=== PATIENT | female | born 2000 | race Caucasian/White ===

== ENCOUNTER 2020-02-11 11:05 | Emergency (ER) | payer OTHER, SELFPAY ==
--- NOTE | ~2020-02-11 | CT_ITS ---
EXAMINATION: CT abdomen pelvis w con DATE: 02/11/2020 13:21 INDICATION: Nausea and vomiting. Diarrhea. TECHNIQUE: Computed tomography (CT) of the abdomen and pelvis was performed with 100 mL Omnipaque 350 intravenous contrast. Automated exposure control and iterative reconstruction technique were employe d. The dose-length product was 604.36 mGy-cm. COMPARISON: CT abdomen and pelvis 07/08/2019 FINDINGS: The visualized portions of the lung bases are clear without pneumonia or pleural effusion. The heart size is normal. No pericardial effusion. The liver, gallbladder, spleen, pancreas, adrenal glands, kidneys, and ureters are normal. There are no dilated loops of bowel. The appendix is normal. There are no pathologically enlarged lymph nodes. There is no free intraperitoneal fluid. There is a benign bone island in right pelvis. IMPRESSION: 1. No etiology for the patient's symptoms. Reviewed, dictated and finalized at location A.
[2020-02-11 11:10] VITALS: BP 120/70; PULSE 72; RESP 28; TEMP 36.4; O2SAT 100
--- NOTE | 2020-02-11 11:18 | ECG_ITS ---
Measurements Intervals [place] Rate: 71 P: 54 MT: 134 QRS: 101 QRSD: 98 T: 60 QT: 383 QTc: 418 Interpretive Statements SINUS RHYTHM NORMAL ECG Electronically Signed On 02-11-2020 11:46:03 CDT by Abdullahi Willoughby D.O.
[2020-02-11] MEDS: ONDANSETRON INJ 4 MG/2 ML VIAL IV PUSH (11:27)
[2020-02-11] MEDS: SODIUM CHLORIDE 0.9% IV 1,000 ML 999 ML IV CONT (11:27)
[2020-02-11] MEDS: FAMOTIDINE 20 MG/2 ML VIAL IV PUSH (11:28)
[2020-02-11 11:35] LABS: Basophils Absolute Auto 0.1 K/mm3 (0.0-0.1); Basophils Percent Auto 0.4 % (0.2-1.2); Eosinophils Absolute Auto 0.3 K/mm3 (0-0.3); Eosinophils Percent Auto 1.9 % (0-4.4); Hemoglobin 14.8 g/dL (12.0-15.0); Immature Granulocyte Absolute 0.06 K/mm3 (0.00-0.031); Immature Granulocyte Percent A 0.4 % (0-0.5); Lymphocytes Absolute Auto 3.25 K/mm3 (0.9-3.2); Lymphocytes Percent Auto 22.5 % (18.3-44.2); Mean Corpuscular HGB Conc 35.2 g/dl (32-36); Mean Corpuscular Hemoglobin 31.4 pg (26-34); Mean Corpuscular Volume 89.2 fl (80-100); Mean Platelet Volume 9.5 fl (7.4-10.4); Monocytes Absolute Auto 1.1 K/mm3 (0.1-0.6); Monocytes Percent Auto 7.4 % (2.6-8.5); Neutrophils Absolute Auto 9.7 K/mm3 (1.3-6.7); Neutrophils Percent Auto 67.4 % (45.5-73.1); Platelet Count Result 458 k/mm3 (150-375); Red Blood Count 4.71 M/mm3 (4.2-5.4); Red Cell Distribution Width 12.3 % (11.5-14.5); White Blood Count 14.4 K/mm3 (4.5-10.0)
[2020-02-11 11:46] LABS: Alanine Aminotransferase 19 U/L (4-35); Albumin Level 4.8 g/dL (3.5-5.1); Alkaline Phosphatase 94 U/L (38-126); Aspartate Amino Transferase 17 U/L (14-36); Bilirubin,Total 0.7 mg/dL (0.2-1.3); Blood Urea Nitrogen 12 mg/dL (7-17); Calcium 9.8 mg/dL (8.4-10.2); Carbon Dioxide 20 mmol/L (22-30); Chloride 107 mmol/L (98-107); Estimated CRCL calculation 119 ml/min; Estimated Glomerular Filt Rate > 60; Glucose 91 mg/dL (65-105); Lipase 211 U/L (23-300); Sodium 137 mmol/L (137-145)
--- NOTE | 2020-02-11 12:14 | ED.NAVMDI ---
HPI - Nausea/Vomiting/Diarrhea General Chief complaint: Nausea/Vomiting/Diarrhea <Italo Bridges PA-C - Last Filed: 02/11/20 13:56> Stated complaint: n/v, SOB <Italo Bridges PA-C - Last Filed: 02/11/20 13:56> Time Seen by Provider: 02/11/20 11:09 <Italo Bridges PA-C - Last Filed: 02/11/20 13:56> Source: patient <Italo Bridges PA-C - Last Filed: 02/11/20 13:56> Mode of arrival: ambulatory <WENDIE Montana Last Filed: 02/11/20 13:56> Limitations: no limitations <WENDIE Montana Last Filed: 02/11/20 13:56> History of Present Illness HPI Narrative: Patient is a 19-year-old female who presents to emergency department for evaluation of abdominal pain and suprapubic region coupled with nausea and vomiting this morning that started with multiple episodes of emesis unable to keep liquids down also notes over the last week she has had some loose stools patient recently diagnosed polycystic ovarian disease and 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 Patient denies rectal bleeding notes that she has had some chills with her vomiting. Patient denies similar occurrence in regards to her vomiting <Italo Bridges PA-C - Last Filed: 02/11/20 13:56> Related Data Allergies/Adverse reactions: Allergies Allergy/AdvReac Type Severity Reaction Status Date / Time No Known Allergies Allergy Verified 02/11/20 11:16 <Italo Bridges PA-C - Last Filed: 02/11/20 13:56> Review of Systems Review of Systems: All systems reviewed & are unremarkable except as noted in HPI and below <Italo Bridges PA-C - Last Filed: 02/11/20 13:56> [facility] Past Medical History Medical History: Medical History (Updated 02/11/20 @ 13:54 by Italo Bridges PA-C) Anxiety Obesity Polycystic ovary disease <WENDIE [place] Last Filed: 02/11/20 13:56> Social History Social History: Social History Gender identity (if verbalized by the patient): Female <Italo Bridges PA-C - Last Filed: 02/11/20 13:56> Exam Narrative: Exam Narrative: GENERAL: Well-appearing, obese, and in no acute distress. HEAD: Normocephalic, atraumatic. EYES: PERRLA and EOMI. ENT: Nares clear, no rhinorrhea or epistaxis. Mucous membranes moist. Oropharynx without tonsillar hypertrophy exudate or other lesions. NECK: Supple. No adenopathy or masses. No carotid bruits or JVD CHEST: Clear to auscultation. No respiratory distress. No wheezes rales or rhonchi HEART: Regular rate and rhythm. No murmur heard. Normal peripheral pulses. ABDOMEN: Soft, suprapubic tenderness to palpation, nondistended EXTREMITIES: Normal range of motion. No edema. SKIN: Warm, dry, no rash. NEURO: No focal deficits. Alert and oriented x3. Cranial nerves II through XII grossly intact PSYCH: Normal mood and affect. <Italo Bridges PA-C - Last Filed: 02/11/20 13:56> Course Course Emergency Course: Patient in the room aware of case findings treatment plan and diagnosis feeling better at this time <Italo Bridges PA-C - Last Filed: 02/11/20 13:56> Vital Signs Vital signs: Vital Signs Temperature 36.4 C 02/11/20 11:10 Pulse Rate 72 02/11/20 11:10 Respiratory Rate 28 H 02/11/20 11:10 Blood Pressure 120/70 02/11/20 11:10 Pulse Oximetry 100 02/11/20 11:10 Temperature 36.3 C L 02/11/20 12:20 Pulse Rate 75 02/11/20 14:06 Respiratory Rate 14 02/11/20 14:06 Blood Pressure 130/50 L 02/11/20 14:06 Pulse Oximetry 98 02/11/20 14:06 <Italo Bridges PA-C - Last Filed: 02/11/20 13:56> Vital Signs Temperature 36.4 C 02/11/20 11:10 Pulse Rate 72 02/11/20 11:10 Respiratory Rate 28 H 02/11/20 11:10 Blood Pressure 120/70 05/28/20 11:10 Pulse Oximetry 100 02/11/20 11:10 T
[2020-02-11] MEDS: IBUPROFEN IV 800 MG/200 ML 800 MG/200 ML BAG 400 MG IVPB (12:18)
[2020-02-11] MEDS: LACTATED RINGERS 1,000 ML 999 ML IV CONT (12:18)
[2020-02-11] MEDS: LORAZEPAM INJ 2 MG/ML VIAL 1 MG IV PUSH (12:19)
[2020-02-11 12:20] VITALS: BP 111/67; PULSE 64; RESP 14; TEMP 36.3; O2SAT 96
[2020-02-11 12:27] LABS: Add Urine Microscopic? YES; Amorphous Sediment Urine Few; Appearance Urine Cloudy (Clear); Bacteria Urine Trace /hpf; Bilirubin Urine Negative (Negative); Blood Urine Negative (Negative); Color Urine Yellow (Yellow); Glucose Urine UA Negative (Negative); Ketones Urine Negative (Negative); Leukocyte Esterase Ur Negative LEU/UL (Negative); Mucus Urine Rare /lpf; Nitrate Urine Negative (Negative); Protein Urine Negative (Negative); Specific Grav Ur 1.017 (1.001-1.035); Squamous Epithelial Cell Urine Many /hpf (Few); Urobilinogen Urine Negative mg/dL (<2.0)
[2020-02-11 14:06] VITALS: BP 130/50; PULSE 75; RESP 14; O2SAT 98
== END 2020-02-11 14:14 | disposition home or self-care (01) ==
PROVIDERS: Emergency Medicine Emergency Medical Services; Emergency Provider Emergency Medicine
DX: R10.30 Lower abdominal pain, unspecified (principal); E28.2 Polycystic ovarian syndrome; E66.9 Obesity, unspecified; Z68.34 Body mass index [BMI] 34.0-34.9, adult
CPT/HCPCS: 36415; 74177; 80053; 81001; 81025; 83690; 85025; 93005; 96365; 96367; 96375; 99284; J0131; J1741; J2060; J2405; J7030; J7120; Q9967

== ENCOUNTER 2020-03-08 19:06 | Emergency (ER) | payer OTHER, SELFPAY ==
[2020-03-08 19:19] VITALS: BP 105/56; PULSE 71; RESP 16; TEMP 36.8; O2SAT 99
--- NOTE | 2020-03-08 19:36 | ED.GENADULT ---
HPI - General Adult General Chief complaint: Urogenital-Female Stated complaint: swollen,redness vagina Time Seen by Provider: 03/08/20 19:37 Source: patient Mode of arrival: ambulatory Limitations: no limitations History of Present Illness HPI narrative: 19-year-old female patient presents to the [facility] with complaints of vaginal irritation that started yesterday morning. Patient states she has had a thick white discharge, itching, irritation and swelling. Patient states that she did try and had to have sex last night and states that she was not able to due to pain. Patient states that her last period was in December but recently had an Implanon placed. Patient states that she typically does get STD testing done every 3 months and that the last time she was seen which is about 2-1/2 months ago she was diagnosed with herpes. Patient states she only has 1 partner but she knows that her partner has other possible multiple partners. Patient states that she typically does not use protection because her partner does not want to. Patient denies any homosexual relations. Denies any anal sex. Related Data Home Medications Medication Instructions Recorded Confirmed acyclovir 03/08/20 buspirone mg 03/08/20 calcium carbonate-vitamin D3 tablet PO 03/08/20 doxycycline hyclate 03/08/20 metformin mg 03/08/20 multivitamin [Daily-Maryann] tablet 03/08/20 sertraline mg 03/08/20 spironolactone 03/08/20 Allergies Allergy/AdvReac Type Severity Reaction Status Date / Time No Known Allergies Allergy Verified 02/11/20 11:16 Review of Systems Review of Systems: Narrative: CONSTITUTIONAL: Denies fever, chills, or sweats. EYES: Denies visual changes, redness, or discharge. ENT: Denies rhinorrhea, congestion, sore throat, or otalgia. CARDIOVASCULAR: Denies chest pain, palpitations, or edema. RESPIRATORY: Denies cough or dyspnea. GASTROINTESTINAL: Denies abdominal pain, nausea, vomiting, or diarrhea. GENITOURINARY: Denies dysuria or hematuria. Positive vaginal itch, irritation and discharge since yesterday SKIN: Denies rash or itching. MUSCULOSKELETAL: Denies back pain, joint pain, or myalgia. NEUROLOGIC: Denies headache, numbness, or weakness. PSYCHIATRIC: Denies anxiety or depression. [facility] Past Medical History Medical History Anxiety Obesity Polycystic ovary disease Social History Social History Gender identity (if verbalized by the patient): Female Comments At the time of my signature I agree with nursing past medical history, surgical, social, and family history. There is no relevant family history pertinent to the presenting complaint. Exam Narrative: Exam Narrative: GENERAL: Well-appearing, well-nourished, and in no acute distress. HEAD: Normocephalic, atraumatic. EYES: PERRLA and EOMI. ENT: Nares clear, no rhinorrhea or epistaxis. Mucous membranes moist. NECK: Supple. No lymphadenopathy CHEST: Clear to auscultation. No respiratory distress. HEART: Regular rate and rhythm. No murmur heard. Normal peripheral pulses. ABDOMEN: Soft, nontender, nondistended, normal active bowel sounds. No CVA tenderness on percussion : Normal external female genitalia. There is some redness and excoriation noted to the bilateral labia. OS is closed. Positive adnexal fullness and TTP. Patient has some white discharge noted on exam. No CVA tenderness to percussion. EXTREMITIES: Normal range of motion. No edema. SKIN: Warm, dry, no rash. NEURO: No focal deficits. Alert and oriented x3. Course Vital Signs Vital signs: Vital Signs Temperature 36.8 C 03/08/20 19:19 Pulse Rate 71 03/08/20 19:19 Respiratory Rate 16 03/08/20 19:19 Blood Pressure 105/56 L 03/08/20 19:19 Pulse Oximetry 99 03/08/20 19:19 Temperature 36.8 C 03/08/20 19:19 Pulse Rate 71 03/08/20 19:19 Respiratory Rate 16 03/08/20 1
--- NOTE | 2020-03-08 19:56 | PC.NURSE ---
vaginal exam set up at bedside.
[2020-03-08] MEDS: LIDOCAINE HCL 1% LOCAL INJ 20 ML VIAL IM (20:05)
[2020-03-08] MEDS: cefTRIAXone 250 MG VIAL IM (20:05)
[2020-03-08] MEDS: AZITHROMYCIN 250 MG TABLET 1000 MG PO (20:05)
== END 2020-03-08 20:28 | disposition home or self-care (01) ==
PROVIDERS: Emergency Provider Nurse Practitioner Family
DX: N89.8 Other specified noninflammatory disorders of vagina (principal); F41.9 Anxiety disorder, unspecified; E66.9 Obesity, unspecified; Z68.34 Body mass index [BMI] 34.0-34.9, adult; E28.2 Polycystic ovarian syndrome
CPT/HCPCS: 81003; 81025; 87086; 87491; 87591; 87661; 96372; 99214; A9270; G0463; J0696

== ENCOUNTER 2020-10-11 11:54 | Emergency (ER) | payer OTHER, SELFPAY ==
[2020-10-11 12:13] VITALS: BP 112/68; PULSE 90; RESP 16; TEMP 36.4; O2SAT 99
--- NOTE | 2020-10-11 12:31 | ED.URI ---
HPI - URI/Sore Throat General Chief Complaint: Upper Respiratory Infection Stated Complaint: Sore throat/Headache Source: patient Mode of arrival: ambulatory Limitations: no limitations History of Present Illness HPI Narrative: Patient is a 20-year-old female who presents complaining of sore throat and headache since this a.m. Patient reports having a history of strep throat multiple times a year. She denies cough, congestion, body aches or fever. She denies taking [id number] medications for pain. Related Data Home Medications Medication Instructions Recorded Confirmed acyclovir 03/08/20 buspirone mg 03/08/20 calcium carbonate-vitamin D3 tablet PO 03/08/20 doxycycline hyclate 03/08/20 metformin mg 03/08/20 multivitamin [Daily-Maryann] tablet 03/08/20 sertraline mg 03/08/20 spironolactone 03/08/20 Allergies Allergy/AdvReac Type Severity Reaction Status Date / Time No Known Allergies Allergy Verified 10/11/20 12:05 Review of Systems Review of Systems: Narrative: CONSTITUTIONAL: Denies fever, chills, or sweats. EYES: Denies visual changes, redness, or discharge. ENT: Reports sore throat CARDIOVASCULAR: Denies chest pain, palpitations, or edema. RESPIRATORY: Denies cough or dyspnea. GASTROINTESTINAL: Denies abdominal pain, nausea, vomiting, or diarrhea. GENITOURINARY: Denies dysuria or hematuria. SKIN: Denies rash or itching. MUSCULOSKELETAL: Denies back pain, joint pain, or myalgia. NEUROLOGIC: Reports headache PSYCHIATRIC: Denies anxiety or depression. [facility] Past Medical History Medical History (Updated 10/11/20 @ 12:35 by IMANI Yi) Anxiety Obesity Polycystic ovary disease Social History Social History Gender identity (if verbalized by the patient): Female Comments At the time of signature, I have reviewed and agree with nursing past medical, surgical, social, and family history unless otherwise noted. Please see nursing chart for further information. There is no relevant family history pertinent to the presenting complaint. Exam Narrative: Exam Narrative: GENERAL: Well-appearing, well-nourished, and in no acute distress. HEAD: Normocephalic, atraumatic. EYES: EOMI. No redness or drainage. Conjunctiva are normal. ENT: Mucous membranes pink and moist. Nares clear. No rhinorrhea. Throat positive for erythema, edema and exudate. Uvula midline. NECK: AROM. Supple. Mild cervical lymphadenopathy. CHEST: No respiratory distress. HEART: Regular rate and rhythm. EXTREMITIES: Normal range of motion. No edema. SKIN: Warm, dry, no rash. NEURO: No focal deficits. Alert and oriented x3. Gait steady. PSYCH: Normal affect. No signs of depression or anxiety. Course Vital Signs Vital signs: Vital Signs Temperature 36.4 C L 10/11/20 12:13 Pulse Rate 90 10/11/20 12:13 Respiratory Rate 16 10/11/20 12:13 Blood Pressure 112/68 10/11/20 12:13 Pulse Oximetry 99 10/11/20 12:13 Temperature 36.4 C L 10/11/20 12:13 Pulse Rate 90 10/11/20 12:13 Respiratory Rate 16 10/11/20 12:13 Blood Pressure 112/68 10/11/20 12:13 Pulse Oximetry 99 10/11/20 12:13 Reviewed MDM - URI/Sore Throat MDM Narrative Medical decision making narrative: Patient's rapid strep is positive. Patient to be treated with antibiotics at this time. Patient instructed on increasing fluid intake as well as [id number] medications for pain or fever. Patient is stable for discharge home with outpatient follow-up as needed. Differential Diagnosis Differential diagnosis: Likely upper respiratory infection, otitis media, influenza, pharyngitis and other (Strep throat) Medical Records Attestation: I reviewed the patient's medical records. Lab Data Attestation: I reviewed the patient's lab results. Labs: Strep Screen Positive Group A Strep *(Reference Range: Negative)*
[2020-10-11] MEDS: ACETAMINOPHEN 500 MG TABLET 1000 MG PO (12:45)
== END 2020-10-11 13:01 | disposition home or self-care (01) ==
PROVIDERS: Emergency Provider Nurse Practitioner
DX: J02.0 Streptococcal pharyngitis (principal); E66.9 Obesity, unspecified; Z68.36 Body mass index [BMI] 36.0-36.9, adult; E28.2 Polycystic ovarian syndrome; F41.9 Anxiety disorder, unspecified
CPT/HCPCS: 87880; 99213; A9270; G0463

== ENCOUNTER 2021-09-28 12:02 | Outpatient (CLI) | payer OTHER, SELFPAY ==
[2021-09-28 12:27] LABS: Hemoglobin A1C 5.1 % (<5.7)
[2021-09-28 12:33] LABS: Alanine Aminotransferase 50 U/L (4-35); Albumin Level 4.4 g/dL (3.5-5.1); Alkaline Phosphatase 81 U/L (38-126); Anion Gap 9 mmol/L (8-16); Aspartate Amino Transferase 21 U/L (14-36); Bilirubin,Total 0.5 mg/dL (0.2-1.3); Blood Urea Nitrogen 8 mg/dL (7-17); Calcium 9.2 mg/dL (8.4-10.2); Carbon Dioxide 26 mmol/L (22-30); Chloride 105 mmol/L (98-107); Estimated Glomerular Filt Rate > 60; Glucose 96 mg/dL (65-110); Potassium 4.1 mmol/L (3.4-5.0); Sodium 140 mmol/L (137-145)
[2021-10-02 11:11] LABS: DHEA-Sulfate 441 mcg/dL (18-391)
[2021-10-02 12:39] LABS: Testosterone Total 48 ng/dL (2-45)
[2021-10-03 14:34] LABS: FSH 2.4 mIU/mL (***); Progesterone 0.8 ng/mL (***)
== END 2021-09-28 12:03 | disposition home or self-care (01) ==
LOC: ANHLAB 12:03
PROVIDERS: PCP Emergency Medicine; Visit Provider Obstetrics & Gynecology
DX: R10.2 Pelvic and perineal pain (principal); N94.6 Dysmenorrhea, unspecified
CPT/HCPCS: 36415; 80053; 82627; 83001; 83002; 83036; 83498; 84144; 84403; 84436; 84443

== ENCOUNTER 2022-01-05 15:06 | Outpatient (CLI) | payer OTHER, SELFPAY ==
--- NOTE | ~2022-01-05 | US_ITS ---
EXAMINATION: US pelvic complete w TV DATE: 01/05/2022 16:42 INDICATION: Pelvic and perineal pain TECHNIQUE: Multiple transabdominal and endovaginal sonographic images of the pelvis were obtained. COMPARISON: 10/27/2018 FINDINGS: The uterus measures 7.3 x 5.2 x 3.7 cm. The endometrial complex measures 2 mm. The right ov lolis measures 3.5 x 2.3 x 2.1 cm. There is a 4.8 x 2.9 cm anechoic area in the right adnexa with a gabriela ear internal septation. The left ovary measures 3.1 x 2.4 x 1.6 cm. There is normal vascular flow in the ovaries. There is no free fluid in the pelvis. IMPRESSION: 1. Cystic right adnexal area which could reflect a complex cyst or possible hydrosalpinx. Correlate f or right adnexal tenderness. Follow-up ultrasound in 8-12 weeks is recommended. Reviewed, dictated and finalized at location F. IMPRESSION: 1. Cystic right adnexal area which could reflect a complex cyst or possible hyd rosalpinx. Correlate for right adnexal tenderness. Follow-up ultrasound in 8-12 weeks is recommended.
== END 2022-01-05 15:07 | disposition home or self-care (01) ==
PROVIDERS: PCP Emergency Medicine; Visit Provider Obstetrics & Gynecology
DX: R10.2 Pelvic and perineal pain (principal); D35.01 Benign neoplasm of right adrenal gland
CPT/HCPCS: 76830; 76856

== ENCOUNTER 2022-08-12 09:56 | Emergency (ER) | payer OTHER, SELFPAY ==
[2022-08-12 10:45] VITALS: BP 112/07; PULSE 75; RESP 18; TEMP 36.2; O2SAT 99
--- NOTE | 2022-08-12 10:56 | ED.FALL ---
HPI - Fall General Chief Complaint: Fall Stated Complaint: Fall Time Seen by Provider: 08/12/22 10:57 Source: patient Mode of arrival: ambulatory Limitations: no limitations History of Present Illness HPI Narrative: 22-year-old female presents for complaint of bilateral ankle pain and left busch pain after fall yesterday. 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 She states she may have rolled the right ankle, fell, and then rolled the left ankle. She is able to bear weight but reports increase in pain. She states the pain shoots from her ankles to her knees. Rates pain 5/10, described as throbbing and sharp and shooting. She states today she feels the swelling has decreased. Endorses full range of motion at the ankles but pain with movement. CMS intact. She is taking Tylenol for symptoms without relief. Denies hitting her head or LOC. Related Data Home Medications Medication Instructions Recorded Confirmed etonogestrel 68 mg subdermal 1 implant subdermal ONCE 09/28/21 08/12/22 implant (Nexplanon) Allergies Allergy/AdvReac Type Severity Reaction Status Date / Time No Known Allergies Allergy Verified 08/12/22 10:32 Review of Systems Review of Systems: CONSTITUTIONAL: Denies body aches, fever, chills CARDIOVASCULAR: Denies chest pain, palpitations, or edema. RESPIRATORY: Denies cough or dyspnea. GASTROINTESTINAL: Denies abdominal pain, nausea, vomiting, or diarrhea. SKIN: Denies rash, itching, or wounds. MUSCULOSKELETAL: Per HPI NEUROLOGIC: Denies headache, numbness, tingling, or weakness. PSYCH: Denies depression or anxiety. All systems reviewed & are unremarkable except as noted in HPI and below PMFSH Past Medical History Medical History Anxiety Obesity Polycystic ovary disease Family History Family History Mother Breast cancer Ovarian cancer Depression Thyroid disorder Grandparent Diabetes mellitus Hypertension Depression Heart disease Cerebrovascular accident Thyroid disorder Social History Social History Smoking status: Never smoker Alcohol intake: current Substance use: never Gender identity (if verbalized by the patient): Female Comments At time of signature, I have reviewed and agree with nursing past medical, surgical, social and family history unless otherwise noted. Please see nursing chart for further information. There is no relevant family history pertinent to the presenting complaint Exam Narrative: GENERAL: Well-appearing HEAD: Normocephalic, atraumatic. CHEST: Speaks in full sentences. No respiratory distress. HEART: Regular rate and rhythm. Normal and equal peripheral pulses. EXTREMITIES: Reports left ankle pain in the center of the ankle and Right lateral ankle pain. Bilateral lower extremities have normal strength and sensation, normal range of motion at ankles with flexion/extension/rotation, but endorses pain with movement. Minimal swelling, no bruising noted to ankles. No open wounds, or obvious deformity; alignment normal, pulse palpable and equal bilaterally, skin warm, dry, pink. Capillary refill less than 3 seconds. Left anterior busch contusion approx 3cm diameter. SKIN: Warm, dry, no rash. NEURO: Alert and oriented x3. PSYCH: Normal mood and affect Course Course Emergency Course: Patient is aware of diagnosis, understands and agrees to treatment plan. Anticipatory guidance given. Patient agrees to follow-up as directed and is aware of reasons to seek care at the emergency department. Portions of this record may have been created with voice recognition software Level of Care: Express Care Visit Vital Signs Vital signs: Vital Signs Temperature 97.2 F L 08/12/22 10:45 Pulse Rate 75 08/12/22 10:45 Re
== END 2022-08-12 11:20 | disposition home or self-care (01) ==
PROVIDERS: Emergency Provider Nurse Practitioner Family; PCP Emergency Medicine
DX: M25.572 Pain in left ankle and joints of left foot (principal); M25.571 Pain in right ankle and joints of right foot; W10.9XXA Fall (on) (from) unspecified stairs and steps, initial encounter; Y99.0 Civilian activity done for income or pay; E66.9 Obesity, unspecified; Z68.41 Body mass index [BMI] 40.0-44.9, adult; E28.2 Polycystic ovarian syndrome
CPT/HCPCS: 99213; G0463

== ENCOUNTER 2023-02-03 22:01 | Emergency (ER) | payer OTHER, SELFPAY ==
[2023-02-03 22:03] VITALS: BP 141/96; PULSE 87; RESP 14; TEMP 36.7; O2SAT 98
--- NOTE | 2023-02-03 22:05 | ECG_ITS ---
Measurements Intervals [place] Rate: 78 P: 64 NE: 133 QRS: 77 QRSD: 84 T: 66 QT: 363 QTc: 416 Interpretive Statements SINUS RHYTHM NORMAL ECG COMPARED TO ECG 02/11/2020 11:13:33 NO SIGNIFICANT CHANGES Electronically Signed On 02-04-2023 6:45:12 CDT by Abdullahi Willoughby D.O.
[2023-02-03 23:08] VITALS: PULSE 65; RESP 14; O2SAT 99
[2023-02-03 23:15] VITALS: PULSE 76; O2SAT 100
[2023-02-03 23:30] VITALS: PULSE 74; RESP 16; O2SAT 100
[2023-02-03 23:44] VITALS: PULSE 71; RESP 19; TEMP 36.9; O2SAT 100
--- NOTE | 2023-02-03 23:50 | PC.NURSE ---
Pt states I feel like I tripped on Acid too many times and I think maybe I am stuck in a trip .
[2023-02-04] VITALS (15 sets, daily range): BP systolic 117–138; BP diastolic 65–82; PULSE 62–88; RESP 14–25; O2SAT 96–100
--- NOTE | 2023-02-04 00:15 | ED.DIZZY ---
HPI - Dizziness General Chief Complaint: Syncope Stated Complaint: near syncope Time Seen by Provider: 02/03/23 23:37 Source: patient Mode of arrival: ambulatory Limitations: no limitations History of Present Illness HPI Narrative: This is a 22-year-old female presents to the ED with chief complaint of near syncope. Patient reports that she feels high and that her brain has been foggy for the past few weeks. She states that she was started on Paxil a few months ago by her PCP for possible depression. She states that she does not feel depressed. She does state that she has had some shortness of breath and upper extremity tingling. She states she is stressed with the way she is feeling. She states I don't know if I did too many drugs when I was a teenager but it feels like my brain is fried. States that she currently smokes weed but does not do any other drugs. Denies any actual loss of consciousness. Denies fevers, chills, chest pain, abdominal pain, vomiting, urinary symptoms. Related Data Home Medications Medication Instructions Recorded Confirmed paroxetine HCl 20 mg tablet (Paxil) 20 mg PO DAILY 01/03/23 Allergies Allergy/AdvReac Type Severity Reaction Status Date / Time No Known Allergies Allergy Verified 02/03/23 22:01 Review of Systems Review of Systems: CONSTITUTIONAL: Denies fever, chills, or sweats. EYES: Denies visual changes, redness, or discharge. ENT: Denies rhinorrhea, congestion, sore throat, or otalgia. CARDIOVASCULAR: Denies chest pain, palpitations, or edema. RESPIRATORY: Denies cough or dyspnea. GASTROINTESTINAL: Denies abdominal pain, nausea, vomiting, or diarrhea. GENITOURINARY: Denies dysuria or hematuria. SKIN: Denies rash or itching. MUSCULOSKELETAL: Denies back pain, joint pain, or myalgia. NEUROLOGIC: See HPI PSYCHIATRIC: See HPI [facility] Past Medical History Medical History (Updated 02/04/23 @ 02:16 by Mayank Miller PA-C) Anxiety Obesity Polycystic ovary disease Family History Family History Mother Breast cancer Ovarian cancer Depression Thyroid disorder Grandparent Diabetes mellitus Hypertension Depression Heart disease Cerebrovascular accident Thyroid disorder Social History Social History Smoking status: Never smoker Alcohol intake: current Substance use: never Gender identity (if verbalized by the patient): Female Exam Narrative: GENERAL: Well-appearing, well-nourished, and in no acute distress. HEAD: Normocephalic, atraumatic. EYES: PERRLA and EOMI. ENT: Nares clear, no rhinorrhea or epistaxis. Mucous membranes moist. Oropharynx without tonsillar hypertrophy exudate or other lesions. NECK: Supple. No adenopathy or masses. CHEST: No respiratory distress. Clear to auscultation. No wheezes rales or rhonchi HEART: Regular rate and rhythm. No murmur heard. Normal peripheral pulses. ABDOMEN: Soft, nontender, nondistended, normal active bowel sounds. MSK: Normal range of motion. No edema. SKIN: Warm, dry, no rash. NEURO: Alert and oriented x3. No focal deficits. PSYCH: Anxious mood. Avoids eye contact. Appropriate affect. Conversational and cooperative. Course Vital Signs Vital signs: Vital Signs Temperature 98.0 F 02/03/23 22:03 Pulse Rate 87 02/03/23 22:03 Respiratory Rate 14 02/03/23 22:03 Blood Pressure 141/96 H 02/03/23 22:03 Pulse Oximetry 98 02/03/23 22:03 Oxygen Delivery Room Air 02/03/23 22:03 Temperature 98.4 F 02/03/23 23:44 Pulse Rate 71 02/04/23 02:07 Respiratory Rate 19 02/03/23 23:44 Blood Pressure 138/80 02/04/23 02:07 Pulse Oximetry 100 02/03/23 23:44 Oxygen Delivery Room Air 02/03/23 23:44 MDM - Dizziness MDM Narrative Medical decision making narrative: This is a 22-year-old female presents to the ED with chief complaint of shortness
[2023-02-04] MEDS: LORazepam INJ (*CRX) 2 MG/ML VIAL 0.5 MG IV PUSH (01:22)
[2023-02-04] MEDS: MECLIZINE HCL 25 MG TABLET PO (01:23)
[2023-02-04] MEDS: SODIUM CHLORIDE 0.9% IV 1,000 ML 999 ML IV CONT (01:23)
[2023-02-04 01:34] LABS: Basophils Absolute Auto 0.1 K/mm3 (0.0-0.1); Basophils Percent Auto 0.6 % (0.2-1.2); Eosinophils Absolute Auto 0.2 K/mm3 (0-0.3); Hematocrit 41.1 % (37.0-47.0); Hemoglobin 14.1 g/dL (12.0-15.0); Immature Granulocyte Absolute 0.02 K/mm3 (0.00-0.031); Immature Granulocyte Percent A 0.2 % (0-0.5); Lymphocytes Absolute Auto 3.89 K/mm3 (0.9-3.2); Mean Corpuscular HGB Conc 34.3 g/dl (32-36); Mean Corpuscular Hemoglobin 31.5 pg (26-34); Mean Corpuscular Volume 91.7 fl (80-100); Mean Platelet Volume 9.9 fl (7.4-10.4); Monocytes Absolute Auto 0.8 K/mm3 (0.1-0.6); Monocytes Percent Auto 7.4 % (2.6-8.5); Neutrophils Absolute Auto 5.8 K/mm3 (1.3-6.7); Neutrophils Percent Auto 53.8 % (45.5-73.1); Platelet Count Result 405 k/mm3 (150-375); Red Blood Count 4.48 M/mm3 (4.2-5.4); Red Cell Distribution Width 12.4 % (11.5-14.5); White Blood Count 10.8 K/mm3 (4.5-10.0)
[2023-02-04 01:48] LABS: Alanine Aminotransferase 41 U/L (6-35); Albumin Level 4.5 g/dL (3.5-5.1); Alkaline Phosphatase 96 U/L (38-126); Anion Gap 9 mmol/L (8-16); Aspartate Amino Transferase 20 U/L (14-36); Bilirubin,Total 0.4 mg/dL (0.2-1.3); Blood Urea Nitrogen 8 mg/dL (7-17); Calcium 9.3 mg/dL (8.4-10.2); Carbon Dioxide 27 mmol/L (22-30); Chloride 106 mmol/L (98-107); Estimated CRCL calculation 130 ml/min; Estimated Glomerular Filt Rate > 60; Glucose 86 mg/dL (65-110); Potassium 3.5 mmol/L (3.4-5.0); Sodium 142 mmol/L (137-145)
== END 2023-02-04 03:16 | disposition home or self-care (01) ==
PROVIDERS: Emergency Provider Physician Assistant; PCP Emergency Medicine
DX: R42 Dizziness and giddiness (principal); F41.9 Anxiety disorder, unspecified; E66.9 Obesity, unspecified; Z68.41 Body mass index [BMI] 40.0-44.9, adult; E28.2 Polycystic ovarian syndrome
CPT/HCPCS: 36415; 80053; 85025; 93005; 96361; 96374; 99284; A9270; J2060; J7030

== ENCOUNTER 2023-03-26 11:28 | Outpatient (CLI) | payer OTHER, SELFPAY ==
--- NOTE | ~2023-03-26 | US_ITS ---
EXAMINATION: US pelvic complete w TV DATE: 03/26/2023 16:30 INDICATION: Ovarian cyst. TECHNIQUE: Multiple transabdominal and transvaginal sonographic images of the pelvis were obtained. COMPARISON: Ultrasound 01/05/2022, CT abdomen and pelvis 02/11/2020 FINDINGS: TRANSABDOMINAL ULTRASOUND: The uterus measures 7.6 x 3.6 x 4.0 cm. There is no free fluid in the pelvis. TRANSVAGINAL ULTRASOUND: The endometrial complex measures 4 mm in thickness. The right ovary measures 3.0 x 2.1 x 2.3 cm. The left ovary measures 3.0 x 1.7 x 1.8 cm. There is normal vascular flow in the ovaries. IMPRESSION: 1. Normal pelvis. Reviewed, dictated and finalized at location E. IMPRESSION: 1. Normal pelvis.
== END 2023-03-26 15:37 ==
PROVIDERS: PCP Emergency Medicine; Visit Provider Obstetrics & Gynecology
DX: Z87.42 Personal history of other diseases of the female genital tract (principal)
CPT/HCPCS: 76830; 76856

== ENCOUNTER 2023-03-28 12:29 | Outpatient (CLI) | payer OTHER, SELFPAY ==
[2023-03-28 13:52] LABS: Thyroid Stimulating Hormone 0.486 uIU/mL (0.465-4.680)
[2023-03-31 12:16] LABS: DHEA-Sulfate 469 mcg/dL (18-391); Insulin Level Total 5.9 uIU/mL (<=19.6)
[2023-04-02 13:40] LABS: FSH 5.7 mIU/mL (***); Progesterone 1.1 ng/mL (***)
[2023-04-06 12:24] LABS: Testosterone Total 50 ng/dL (2-45)
== END 2023-03-28 12:30 | disposition home or self-care (01) ==
PROVIDERS: PCP Emergency Medicine; Visit Provider Obstetrics & Gynecology
DX: E28.2 Polycystic ovarian syndrome (principal)
CPT/HCPCS: 36415; 82627; 83001; 83002; 83498; 83525; 84144; 84403; 84443

== ENCOUNTER 2024-04-17 21:07 | Emergency (ER) | payer OTHER, SELFPAY ==
--- NOTE | ~2024-04-17 | XR_ITS ---
EXAMINATION: XR chest 2V DATE: 04/17/2024 21:46 INDICATION: Chest pain TECHNIQUE: PA and lateral views of the chest were obtained. COMPARISON: None FINDINGS: The lungs are clear with no focal airspace opacities, pulmonary edema, pleural effusion or pneumothor ax. The cardiomediastinal silhouette is normal. Visualized bones and soft tissues are unremarkable. IMPRESSION: 1. No acute cardiopulmonary disease. Reviewed, dictated and finalized at location A.
--- NOTE | 2024-04-17 21:09 | ECG_ITS ---
Test Date: 2024-04-17 21:26:19 Measurements Intervals [place] Rate: 79 P: 47 TN: 148 QRS: 62 QRSD: 90 T: 43 QT: 368 QTc: 423 Interpretive Statements SINUS RHYTHM NORMAL ELECTROCARDIOGRAM No previous ECG available for comparison Electronically Signed On 04-18-2024 08:18:49 CDT by Deandre Perez M.D.
[2024-04-17 21:29] VITALS: BP 132/74; PULSE 77; RESP 16; TEMP 36.5; O2SAT 100
[2024-04-18] VITALS (22 sets, daily range): BP systolic 106–134; BP diastolic 41–91; PULSE 61–78; RESP 13–28; TEMP 36.6; O2SAT 97–100
[2024-04-18 02:26] LABS: Hematocrit 40.4 % (37.0-47.0); Hemoglobin 13.9 g/dL (12.0-15.0); Mean Corpuscular HGB Conc 34.4 g/dl (32-36); Mean Corpuscular Hemoglobin 32.1 pg (26-34); Mean Corpuscular Volume 93.3 fl (80-100); Mean Platelet Volume 9.3 fl (7.4-10.4); Platelet Count Result 393 k/mm3 (150-375); Red Blood Count 4.33 M/mm3 (4.2-5.4); Red Cell Distribution Width 12.6 % (11.5-14.5)
[2024-04-18 02:37] LABS: Alanine Aminotransferase 55 U/L (6-35); Albumin Level 4.3 g/dL (3.5-5.1); Alkaline Phosphatase 86 U/L (38-126); Anion Gap 8 mmol/L (4-12); Aspartate Amino Transferase 21 U/L (14-36); Bilirubin,Total 0.4 mg/dL (0.2-1.3); Blood Urea Nitrogen 13 mg/dL (7-17); Calcium 9.2 mg/dL (8.4-10.2); Carbon Dioxide 29 mmol/L (22-30); Chloride 102 mmol/L (98-107); Estimated CRCL calculation 128 ml/min; Estimated Glomerular Filt Rate > 60; Glucose 95 mg/dL (65-110); INR 0.9; Lipase 289 U/L (23-300); Potassium 4.1 mmol/L (3.4-5.0); Prothrombin Time 13.1 Seconds (11.1-14.7); Sodium 139 mmol/L (137-145)
[2024-04-18 02:51] LABS: Atypical Lymphocytes Present; Basophils Absolute Manual 0.11 K/mm3 (0.0-0.1); Basophils Percent Manual 1 % (0-1); Eosinophils Absolute Manual 0.66 K/mm3 (0.02-0.50); Eosinophils Percent Manual 6 % (0-4); Lymphocytes Absolute Manual 6.27 K/mm3 (1.1-4.5); Monocytes Absolute Manual 0.55 K/mm3 (0.1-0.90); Monocytes Percent Manual 5 % (3-9); Neutrophils Percent Manual 31 % (46-73); Platelet Estimate Adequate (Adequate); Schistocytes None Seen; Smudge Cells PRESENT; Total Cells Counted 100
[2024-04-18 02:52] LABS: Troponin I < 0.012 ng/mL (0.000-0.034)
[2024-04-18] MEDS: SODIUM CHLORIDE 0.9% IV 1,000 ML 999 ML (03:21)
[2024-04-18] MEDS: BELLADONNA ALK/PHENOB ELIX 10 ML, MAG HYDROX/ALUMINUM HYD/SIMETH 30 ML, LIDOCAINE HCL 2... PO (03:21)
[2024-04-18] MEDS: KETOROLAC 15 MG/ML VIAL (*BKC) IV PUSH (03:23)
[2024-04-18] MEDS: PROCHLORPERAZINE EDISYLATE 10 MG/2 ML VIAL IV PUSH (03:23)
[2024-04-18] MEDS: diphenhydrAMINE HCl INJ 50 MG/ML VIAL IV PUSH (03:23)
--- NOTE | 2024-04-18 04:24 | ED.GENADULT ---
HPI - General Adult General Chief complaint: Chest Pain Stated complaint: chest pain Time Seen by Provider: 04/18/24 02:35 History of Present Illness HPI narrative: patient is a 24-year-old female who presents emergency department with chief complaint of chest pain. The patient reports pain started about 1 hour ago reports that pain is sharp reports that she had a Alyssa this evening and has a feeling of like reflux. The patient also reports she has a headache as well. Patient reports she has had migraines before in the past patient denies focal neurological deficit denies history of early cardiac disease Related Data Home Medications Medication Instructions Recorded Confirmed paroxetine HCl 20 mg tablet (Paxil) 20 mg PO DAILY 01/03/23 04/24/23 Allergies Allergy/AdvReac Type Severity Reaction Status Date / Time No Known Allergies Allergy Verified 04/24/23 13:56 Review of Systems Review of Systems: A 10 system review of systems was completed on the patient and is negative except for what is stated in the HPI. Nursing and ancillary documentation was reviewed. [facility] Past Medical History Medical History (Updated 04/18/24 @ 05:57 by Stanley Callahan MD) Anxiety Obesity Polycystic ovary disease Family History Family History Mother Breast cancer Ovarian cancer Depression Thyroid disorder Grandparent Diabetes mellitus Hypertension Depression Heart disease Cerebrovascular accident Thyroid disorder Social History Social History Smoking status: Never smoker Alcohol intake: current Substance use: never Lack of Transportation: No Lack of Food: Never True Current Housing: I Have Housing Concerned About Future Housing: No Difficulty Paying Gas/Electric Bills: No Difficulty Paying for Meds: No Currently Unemployed: No Education: High School Diploma/GED Difficulty w/ Childcare or Family Care: No Living arrangements: with roommate(s) Occupation/Education: other Additional occupation/education comments: Stay at home mom Gender identity (if verbalized by the patient): Female Spiritual care concerns: No Exam Narrative: GENERAL: Well-appearing, well-nourished, and in no acute distress. HEAD: Normocephalic, atraumatic. EYES: PERRLA and EOMI. ENT: Nares clear, no rhinorrhea or epistaxis. Mucous membranes moist. NECK: Supple. CHEST: Clear to auscultation. No respiratory distress. HEART: Regular rate and rhythm. No murmur heard. Normal peripheral pulses. ABDOMEN: Soft, nontender, nondistended, normal active bowel sounds. EXTREMITIES: Normal range of motion. No edema. SKIN: Warm, dry, no rash. NEURO: No focal deficits. Alert and oriented x3. PSYCH: Normal mood and affect. Course Vital Signs Vital signs: Vital Signs Temperature 36.5 C 04/17/24 21:29 Pulse Rate 77 04/17/24 21:29 Respiratory Rate 16 04/17/24 21:29 Blood Pressure 132/74 04/17/24 21:29 Pulse Oximetry 100 04/17/24 21:29 Oxygen Delivery Room Air 04/17/24 21:29 Temperature 36.6 C 04/18/24 00:48 Pulse Rate 68 04/18/24 05:39 Respiratory Rate 26 H 04/18/24 05:39 Blood Pressure 106/41 L 04/18/24 04:17 Pulse Oximetry 99 04/18/24 04:17 Oxygen Delivery Room Air 04/18/24 03:31 Medical Decision Making [facility] Narrative Medical decision making narrative: differential diagnosis includes chest wall pain, gastroesophageal reflux disease, ACS, EKG showed no acute ischemic changes laboratory studies were obtained which showed normal CBC normal CMP initial troponin was negative patient is feeling much better after receiving Compazine Benadryl Toradol and received a GI cocktail. Vital Signs Vital Signs: Vital Signs Temperature 36.5 C 04/17/24 21:29 Pulse Rate 77 04/17/24 21:29 Respiratory Rate 16 0
== END 2024-04-18 06:31 | disposition home or self-care (01) ==
PROVIDERS: Emergency Provider Emergency Medicine; PCP Emergency Medicine
DX: R07.89 Other chest pain (principal); E28.2 Polycystic ovarian syndrome; E66.9 Obesity, unspecified; Z68.41 Body mass index [BMI] 40.0-44.9, adult; F41.9 Anxiety disorder, unspecified; Z79.899 Other long term (current) drug therapy
CPT/HCPCS: 36415; 71046; 80053; 83690; 84484; 85025; 85610; 85730; 93005; 96361; 96374; 96375; 99284; A9270; J0780; J1200; J1885; J7030